=== PATIENT | male | born 1955 | race Caucasian/White ===

== ENCOUNTER → 2018-12-25 | Outpatient (CLI) | payer MEDICARE ==
--- NOTE | 2018-12-25 08:39 | CT ---
EXAMINATION TYPE: CT iac wo con DATE OF EXAM: 12/25/2018 COMPARISON: None HISTORY: Hearing Loss CT DLP: 150mGycm Automated exposure control for dose reduction was used. High-resolution CT of the temporal bones was performed in the axial and coronal planes. And soft tissue window settings are submitted. FINDINGS: The external auditory canals are patent bilaterally. Mastoid air cells show moderate opaci fication bilaterally without bone destruction. The middle ear ossicles are symmetric and unremarkable . There is no evidence of suspicious surrounding soft tissue density to suggest cholesteatoma. The scutum is preserved bilaterally. The cochlea and the semicircular canals are symmetric and unremarka ble. Vestibular aqueduct and internal carotid canal appear unremarkable. Temporomandibular joints a re maintained bilaterally. Large mucous retention cyst within the right maxillary sinus. A total thi ckening ethmoid air cells. IMPRESSION: 1. Moderate chronic mastoiditis. 2. Large right maxillary mucous retention cyst.
== END | disposition home or self-care (01) ==
LOC: RADCTMAIN 07:43
PROVIDERS: ATTEND Otolaryngology
DX: H70.10 Chronic mastoiditis, unspecified ear (principal); H91.90 Unspecified hearing loss, unspecified ear; H92.09 Otalgia, unspecified ear; H69.90 Unspecified Eustachian tube disorder, unspecified ear
CPT/HCPCS: 70480

== ENCOUNTER → 2020-08-29 | Outpatient (CLI) | payer OTHER ==
--- NOTE | 2020-08-29 10:50 | US ---
EXAMINATION TYPE: US abdomen complete DATE OF EXAM: 08/29/2020 COMPARISON: NONE CLINICAL HISTORY: Z87.891 Personal hx nicotine dependence. Smoker x 45 years; screening for AAA EXAM MEASUREMENTS: Liver Length: 13.7 cm Gallbladder Wall: 0.2 cm CBD: 0.4 cm Spleen: 10.3 cm Right Kidney: 12.7x 6.8 x 6.4 cm Left Kidney: 13.2 x 7.5 x 6.1 cm Pancreas: hyperechoic; tail obscured by overlying bowel gas Liver: wnl Gallbladder: wnl Evidence for sonographic Otto's sign: no CBD: wnl Spleen: wnl Right Kidney: No hydronephrosis or masses seen Left Kidney: multiple renal cysts are imaged with largest at inferior pole = 2.8 x 2.6 x 2.4cm Upper IVC: wnl Abd Aorta: size is wnl; intimal wall thickening is noted mid and distally and into common iliac adrienne ricarda. The visualized liver is homogenous. The intrahepatic portion of the IVC is seen. Some ectasia to abd ominal aorta without greater than 3.0 cm aneurysm There is no evidence of cholelithiasis. Common bi le duct is unremarkable. The visualized portions of the pancreas are homogenous. The spleen is unre markable. Kidneys are symmetric and free of hydronephrosis. Cortical thinning right kidney. Few scat tered small simple appearing thin-walled cysts throughout the left kidney. IMPRESSION: Ectasia to the abdominal aorta without greater than 3.0 cm AAA.
== END | disposition home or self-care (01) ==
LOC: RADUSWWP 09:42
DX: I77.811 Abdominal aortic ectasia (principal)
CPT/HCPCS: 76700

== ENCOUNTER → 2020-09-01 | Outpatient (CLI) | payer MEDICARE ==
--- NOTE | 2020-09-01 15:31 | CTL ---
EXAMINATION TYPE: CT Low Dose Lung DATE OF EXAM ORDERED: 09/01/2020 HISTORY: . Lung cancer screening CT DLP: [address] CTDI: 3.5 mGy Automated exposure control for dose reduction was used. SCREENING VISIT: COMPARISON: TECHNIQUE: Low dose computed tomography scan was performed through the chest at 1 mm thick sections a nd reconstructed images in the coronal plane at [address] DIAGNOSTIC QUALITY: Satisfactory FINDINGS: LUNGS: Emphysematous changes are seen. No pleural effusion or consolidation. No pneumothorax. No significant pleural thickening. No pleural calcifications. Heart mildly prominent with a trace of pericardial fluid. No sizable pulmonary nodule. Mild coronary artery calcification. Aorta of normal caliber. Hypertrophic and degenerative change of the spine. Limited imaging of the upper abdomen demonstrates no definite abnormality. 1.6 cm right adrenal nodul e. IMPRESSION: 1. COPD with no sizable pulmonary nodule. 2. Indeterminate right adrenal nodule measuring 1.[address] LUNG RAD AND CT CHEST RECOMMENDATION: Lung-Rad 1 Negative: Continue annual screening with LDCT in 12 months.
== END | disposition home or self-care (01) ==
LOC: RADCTMAIN 14:45
PROVIDERS: ATTEND Nurse Practitioner Acute Care
DX: Z12.2 Encounter for screening for malignant neoplasm of respiratory organs (principal); J44.9 Chronic obstructive pulmonary disease, unspecified; Z87.891 Personal history of nicotine dependence
CPT/HCPCS: 71271

== ENCOUNTER → 2021-10-10 | Outpatient (CLI) | payer OTHER ==
--- NOTE | 2021-10-10 10:18 | CTL ---
EXAMINATION TYPE: CT Low Dose Lung DATE OF EXAM ORDERED: 10/10/2021 HISTORY: Tobacco use. Lung cancer screening CT DLP: 98.[address] CTDI: 2.80 mGy Automated exposure control for dose reduction was used. SCREENING VISIT: Follow-up COMPARISON: CT dated 09/01/2020 TECHNIQUE: Low dose computed tomography scan was performed through the chest at 1 mm thick sections a nd reconstructed images in multiple planes at 1 mm and [address] DIAGNOSTIC QUALITY: Satisfactory FINDINGS: LUNG NODULES: Left lung solid [address] image 201. This nodule is unchanged. LUNGS: COPD: Severity: Mild Fibrosis: Severity: None Lymph nodes: No pathologic lymph nodes Other findings: None RIGHT PLEURAL SPACE: Effusion: None Calcification: None Thickening: None Pneumothorax: None LEFT PLEURAL SPACE: Effusion: None Calcification: None Thickening: None Pneumothorax: None HEART: Heart Size: Normal Coronary Calcification: Mild Pericardial Effusion: None OTHER FINDINGS: Upper abdomen: Stable 2.2 cm right adrenal adenoma. Left upper pole renal cyst, incompletely included in the scan. Bony thorax: No aggressive bone lesion. Supraclavicular region: None Other: Arterial atherosclerotic calcifications IMPRESSION: Stable left lung 3 mm nodule. No new suspicious or progressive lung lesion. Stable right adrenal adenoma. CT LUNG RAD AND CT CHEST RECOMMENDATION: Lung-Rad 2 Benign Appearance or Behavior: Continue annual sc reening with LDCT in 12 months. S Modifier (other clinically significant findings): As above.
== END | disposition home or self-care (01) ==
LOC: RADCTMAIN 07:27
DX: Z12.2 Encounter for screening for malignant neoplasm of respiratory organs (principal); R91.1 Solitary pulmonary nodule; D35.01 Benign neoplasm of right adrenal gland; Z87.891 Personal history of nicotine dependence
CPT/HCPCS: 71271

== ENCOUNTER → 2022-10-12 | Outpatient (CLI) | payer OTHER ==
--- NOTE | 2022-10-13 18:37 | CTL ---
EXAMINATION TYPE: CT Low Dose Lung DATE OF EXAM: 10/12/2022 7:31 AM CLINICAL INDICATION:Male, 66 years old with history of Z87.891 personal hx tobacco use; Personal hist ory of tobacco use , history of tobacco use. COMPARISON: Most recent 10/10/2021 CT chest TECHNIQUE: Multiple axial non-contrast scans were obtained from approximately the lung apices through the upper abdomen. Coronal and sagittal reformatted images were obtained. Low dose technique was uti lized. CT DLP: 145.20 mGycm, Automated exposure control for dose reduction was used. CT Contrast: Contrast used: None Oral contrast used: None FINDINGS: ======== Lack of intravenous contrast and low dose technique limits the evaluation of the vascular and soft ti ssue structures. LUNGS: No evidence of pulmonary fibrosis. No evidence of focal consolidation, pneumothorax or pleural effusion. Mild centrilobular and paraseptal emphysema changes are seen throughout the lungs. Nodules: No greater than 4 mm pulmonary nodules. Scattered atelectasis changes along the periphery of the lung s posteriorly. RUL: None. RML: None. RLL: None. RUTHY: None. LLL: None. AIRWAY: Patent and unremarkable. HEART: Size within normal limits.Mild calcifications of the coronary arteries. MEDIASTINUM: No gross evidence of adenopathy. VASCULATURE: No aortic aneurysm. MUSCULOSKELETAL: No acute osseous abnormalities SOFT TISSUES/LYMPH NODES: Unremarkable. LOWER NECK: No significant findings. UPPER ABDOMEN: Stable probable right adrenal adenoma measuring up to 2.1 cm. IMPRESSION: 1. No clinically significant pulmonary nodules. 2. Mild emphysema changes. CT LUNG RAD AND CT CHEST RECOMMENDATION: Lung-Rad 1 Negative: Continue annual screening with LDCT in 12 months. S Modifier (other clinically significant findings): None Recommend smoking cessation (if current smoker), or continuation of smoking cessation (if prior smoke r). Annual screening for lung cancer with low-dose computed tomography is recommended in adults ages 55 to 77 years who have a 30 pack-year smoking history and currently smoke or have quit within the pa st 15 years. Screening should be discontinued once a person has not smoked for 15 years or develops a health problem that substantially limits life expectancy or the ability or willingness to have curat lisa lung surgery. Lung rads 2021 [email or web address]
== END | disposition home or self-care (01) ==
LOC: RADCTMAIN 06:56
DX: J43.2 Centrilobular emphysema (principal); F17.210 Nicotine dependence, cigarettes, uncomplicated
CPT/HCPCS: 71271

== ENCOUNTER 2023-03-10 12:33 | Day surgery (SDC) | payer MEDICARE, OTHER ==
[2023-03-06 15:44] VITALS: BMI 25.7
[~2023-03-10 12:33] MED LIST: LACTATED RINGERS 1,000 ML IV SCH
[2023-03-10 13:18] VITALS: RESP 16; TEMP 99.6
[2023-03-10] MEDS ORDERED: PROPOFOL 10 MG/ML 20 ML VIAL IV ONE (13:28)
--- NOTE | 2023-03-10 13:30 | P.GSHP ---
History of Present Illness H&P Date: 03/10/23 Chief Complaint: Screening colonoscopy This a 7-year-old male presents today for screening colonoscopy. 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), born with large prostate, hx colon polyp, states "episode" showed on ct brain-no residual effects (pt unsure what this episode was) History of Any Multi-Drug Resistant Organisms: None Reported Additional Past Surgical History / Comment(s): fx wrist & later surgically repaired , nose repair surgery x2., jaw surgery, (hx broken jaw and teeth later removed), feet surgery, hands (joints), fingers Past Anesthesia/Blood Transfusion Reactions: No Reported Reaction, Motion Sickness Past Psychological History: No Psychological Hx Reported Smoking Status: Current every day smoker Past Alcohol Use History: None Reported Additional Past Alcohol Use History / Comment(s): smokes 12 cigarettes a day, started smoking as teen., hx smoking off and on. Past Drug Use History: None Reported - Past Family History Father Family Medical History: No Reported History Medications and Allergies Home Medications Medication Instructions Recorded Confirmed Type Aspirin [Adult Low Dose Aspirin EC] 81 mg PO DAILY 03/06/23 03/10/23 History Atorvastatin [Lipitor] 20 mg PO HS 03/06/23 03/10/23 History Multivitamins, Thera [Multivitamin 1 tab PO DAILY 03/06/23 03/10/23 History (formulary)] [place]-3/Dha/Epa/Fish Oil [Fish Oil 1 each PO DAILY 03/06/23 03/10/23 History 1,000 mg Softgel] Terazosin [Hytrin] 5 mg PO QAM 03/06/23 03/10/23 History Terazosin [Hytrin] 10 mg PO HS 03/06/23 03/10/23 History Vit C/E/Zn/Coppr/Lutein/Zeaxan 1 each PO DAILY 03/06/23 03/10/23 History [Preservision Areds 2 Softgel] Allergies Allergy/AdvReac Type Severity Reaction Status Date / Time No Known Allergies Allergy Verified 03/10/23 13:03 Surgical - Exam Vital Signs Temp Pulse Resp BP Pulse Ox 99.6 F 86 16 126/79 96 03/10/23 12:55 03/10/23 12:55 03/10/23 12:55 03/10/23 12:55 03/10/23 12:55 - General well developed, well nourished, no distress - Eyes PERRL - ENT normal pinna, normal nares - Neck no masses - Respiratory normal expansion - Cardiovascular Rhythm: regular - Abdomen Abdomen: soft, non tender Assessment and Plan Assessment: We will perform screening colonoscopy
--- NOTE | 2023-03-10 13:47 | P.OP ---
Date of Procedure: 03/10/23 Preoperative Diagnosis: Screening colonoscopy Postoperative Diagnosis: Rectal polyp Severe diverticulosis Procedure(s) Performed: Colonoscopy Anesthesia: MAC Surgeon: Deng Jenkins Pathology: other (Rectal polyps) Condition: stable Disposition: PACU Description of Procedure: Patient's placed on the endoscopy table in the lateral position. He received IV sedation. Digital rectus performed. There is extensive external hemorrhoids. Possible colitis scope was then placed patient anus and passed with colon. Scope was passed beyond the left colon secondary to severe diverticulosis. Scope withdrawn. There was significant diverticular changes of the left and descending colon. There were significant diverticular changes;. Scope was brought back the rectum there were several small polyp was removed with the snare and forcep. Scope was withdrawn for patient. Patient scheduled for a barium enema as an outpatient. He will follow-up in the office of his performed.
[2023-03-10 14:30] VITALS: BP 132/74; PULSE 75
== END 2023-03-10 14:34 | disposition home or self-care (01) ==
LOC: ORWHC2ENDO 12:33
PROVIDERS: ATTEND Surgery
DX: Z12.11 Encounter for screening for malignant neoplasm of colon (principal); K63.5 Polyp of colon; K62.1 Rectal polyp; M19.90 Unspecified osteoarthritis, unspecified site; F17.210 Nicotine dependence, cigarettes, uncomplicated; Z98.890 Other specified postprocedural states; Z79.82 Long term (current) use of aspirin; Z86.010 Personal history of colon polyps; Z79.899 Other long term (current) drug therapy
CPT/HCPCS: 45385; J2704; 88305

== ENCOUNTER → 2023-03-11 | Outpatient (CLI) | payer MEDICARE ==
--- NOTE | 2023-03-11 12:27 | FL ---
EXAMINATION TYPE: FL single contrast barium enema DATE OF EXAM: 03/11/2023 COMPARISON: NONE HISTORY: 67-year-old male incomplete colonoscopy, R15.0. TECHNIQUE: A single contrast barium enema study is performed. A total of 1 minute 38 seconds of flu oroscopic time was utilized during procedure and 70 images obtained. Total dose area product (DAP) i n uGy*m?, mGy*cm? (or similar): 35. FINDINGS: Ferris Wheel Attendant view of the abdomen shows overall non-obstructive bowel gas pattern. There is scatte red air throughout the colon extending distally to the rectum. Due to patient's condition and back problems, decision was made to proceed with a single contrast exa m. There is some redundancy of the ascending colon and sigmoid colon causing some limitation in assessme nt. Allowing for this limitation, no evidence of any mass or polyp, obstructing or constricting lesion th roughout the colon. There is colonic diverticulosis particularly at the cecum and sigmoid colon. Appendix was filled and appeared normal. No reflux into the terminal ileum. IMPRESSION: Single contrast utilized due to patient's condition and back problems. Redundancy of the ascending colon and sigmoid colon causes some limitation. No obvious annular constricting mass is id entified. There is diverticulosis at the cecum and ascending colon.
== END | disposition home or self-care (01) ==
LOC: RADFLMAIN 09:04
PROVIDERS: ATTEND Surgery
DX: Z12.11 Encounter for screening for malignant neoplasm of colon (principal); K57.30 Diverticulosis of large intestine without perforation or abscess without bleeding; R15.0 Incomplete defecation
CPT/HCPCS: 74270

== ENCOUNTER → 2023-10-14 | Outpatient (CLI) | payer OTHER ==
--- NOTE | 2023-10-14 15:49 | CTL ---
EXAMINATION TYPE: CT Low Dose Lung DATE OF EXAM ORDERED: 10/14/2023 HISTORY: Nicotine dependence. Lung cancer screening CT DLP: [address] CTDI: 2.4 mGy Automated exposure control for dose reduction was used. SCREENING VISIT: Follow-up COMPARISON: Multiple CT Low Dose Lung screening with most recent 10/12/2022 TECHNIQUE: Low dose computed tomography scan was performed through the chest at 1 mm thick sections a nd reconstructed images in multiple planes at 1 mm and [address] DIAGNOSTIC QUALITY: Satisfactory FINDINGS: Nodules: Stable lingular 4 mm pulmonary nodule (series 6, image 41). No new or enlarging pulmonary nodules. Fe w scattered punctate calcified granulomas. LUNGS: COPD: Severity: Mild paraseptal and centrilobular changes. Fibrosis: Severity: None Lymph nodes: Stable prominent subcarinal lymph node. Other findings: None RIGHT PLEURAL SPACE: Effusion: None Calcification: None Thickening: None Pneumothorax: None LEFT PLEURAL SPACE: Effusion: None Calcification: None Thickening: None Pneumothorax: None HEART: Heart Size: Normal Coronary Calcification: Small Pericardial Effusion: None OTHER FINDINGS: Upper abdomen: Stable lipid rich right adrenal adenoma measuring up to 2.3 cm. Bony thorax: None Supraclavicular region: None Other: None IMPRESSION: 1. Stable 4 mm lingular nodule. No new or enlarging pulmonary nodules. 2. Mild COPD changes. CT LUNG RAD AND CT CHEST RECOMMENDATION: Lung-Rad 2 Benign Appearance or Behavior: Continue annual sc reening with LDCT in 12 months. S Modifier (other clinically significant findings): None
== END | disposition home or self-care (01) ==
LOC: RADCTMAIN 12:33
PROVIDERS: ATTEND Family Medicine
DX: Z12.2 Encounter for screening for malignant neoplasm of respiratory organs (principal); J44.9 Chronic obstructive pulmonary disease, unspecified; R91.1 Solitary pulmonary nodule; Z87.891 Personal history of nicotine dependence
CPT/HCPCS: 71271

== ENCOUNTER → 2023-10-15 | Outpatient (CLI) | payer MEDICARE ==
[~2023-10-15] MED LIST changes: -LACTATED RINGERS 1,000 ML IV SCH; +REGADENOSON 0.4 MG/5 ML SYRINGE IV PRN
--- NOTE | 2023-10-15 10:52 | CA ---
Lexiscan Nuclear Stress Test Report Name: Valdo Munoz Exam Date: 10/15/2023 10:17 Exam Location: [facility] Ht (in): 72 Wt (lb): 195 BSA: 2.11 Ordering Phys: Julianna Franklin DO Referring Phys: Julianna Franklin DO Technologist: OSMIN Age: 67 Gender: M : 1955 Procedure CPT: Indications: R07.89 CHEST PAIN I10 HTN ICD-10 Codes: Patient History: Hyperlipidemia and hypertension Medications: Meds past 24 hrs: Pretest Chest Pain: STRESS TEST Lexiscan Protocol Exercise Duration (min:sec): 01:[address] Depressions (mm): Angina Score: Deleon Score: Resting HR (bpm): 56 Peak HR (bpm): 89 Resting BP (mmHg): 144 / 82 Peak BP (mmHg): 145 / 72 MPHR: 154 Target HR: 131 % MPHR: 58 METS: 1.0 Total Dose: Peak Dose: Atropine: Double Product: 22559 BP Response: Stress Termination: INFUSION COMPLETE Stress Symptoms: NO SYMPTOMS Stress Summary: ECG ANALYSIS Resting ECG: Stress ECG: CONCLUSIONS No EKG changes of ischemia during Lexiscan infusion Underlying right bundle branch block pattern on twelve-lead EKG Nuclear portion will be reported separately Dr. Amish Henao MD (Electronically Signed) Final Date: 15 October 2023 10:51
--- NOTE | 2023-10-15 11:59 | NM ---
EXAMINATION TYPE: NM stress lexiscan cardiolite DATE OF EXAM: 10/15/2023 COMPARISON: NONE CLINICAL INDICATION: Male, 67 years old with history of R07.89 CHEST PAIN I10 HTN; TECHNIQUE: After the intravenous administration of 9.7 mCi Tc 99m Sestamibi - Cardiolite resting SPE CT images acquired 75 minutes post injection. The patient received 0.4mg Lexiscan, 26 mCi Tc 99m Sestamibi - Stress images obtained 35 minutes post injection FINDINGS: Review of stress and rest SPECT images demonstrates no distinct perfusion abnormality. Gated analysi s shows normal wall motion with an estimated left ventricular ejection fraction of 71 %. IMPRESSION: No scintigraphic evidence for reversible ischemia.
== END | disposition home or self-care (01) ==
LOC: RADNMMAIN 08:01
PROVIDERS: ATTEND Family Medicine
DX: I45.10 Unspecified right bundle-branch block (principal); R07.89 Other chest pain; I10 Essential (primary) hypertension
CPT/HCPCS: 93017; 78452; A9500; J2785

== ENCOUNTER → 2024-10-18 | Outpatient (CLI) | payer OTHER ==
--- NOTE | 2024-10-18 14:37 | CTL ---
EXAMINATION TYPE: CT Low Dose Lung DATE OF EXAM: 10/18/2024 12:06 PM COMPARISON: 10/14/2023 CLINICAL INDICATION: Male, 68 years old with history of Z12.2 SCREENING LUNG CA Z87.891 FORMER SMOKER ; HISTORY OF SMOKER, history of tobacco use. TECHNIQUE: Multiple axial non-contrast scans were obtained from approximately the lung apices through the upper abdomen. Coronal and sagittal reformatted images were obtained. Low dose technique was uti lized. MIP were created on a separate workstation and submitted for review. CT DLP: 67 mGycm, Automated exposure control for dose reduction was used. CT Contrast: Contrast used: None Oral contrast used: None FINDINGS: Lack of intravenous contrast and low dose technique limits the evaluation of the vascular and soft ti ssue structures. LUNGS: No evidence of pulmonary fibrosis. No evidence of focal consolidation, pneumothorax or pleural effusion. Centrilobular emphysema changes. Nodules: RUL: None. RML: None. RLL: None. RUTHY: Stable lingular 4 mm nodule series 9 image 39 LLL: None. AIRWAY: Patent and unremarkable. HEART: Size within normal limits. Mild coronary artery calcifications present. MEDIASTINUM: No gross evidence of adenopathy. VASCULATURE: No aortic aneurysm. MUSCULOSKELETAL: No acute osseous abnormalities SOFT TISSUES/LYMPH NODES: Unremarkable. LOWER NECK: No significant findings. UPPER ABDOMEN: Left renal cyst measuring a few 40 mm partially visualized. Recommended. IMPRESSION: 1. No clinically significant pulmonary nodules. 2. Mild emphysema. CT LUNG RAD AND CT CHEST RECOMMENDATION: Lung-Rad 2 Benign Appearance or Behavior: Continue annual sc reening with LDCT in 12 months. S Modifier (other clinically significant findings): None Recommend smoking cessation (if current smoker), or continuation of smoking cessation (if prior smoke r). Annual screening for lung cancer with low-dose computed tomography is recommended in adults ages 55 to 77 years who have a 30 pack-year smoking history and currently smoke or have quit within the pa st 15 years. Screening should be discontinued once a person has not smoked for 15 years or develops a health problem that substantially limits life expectancy or the ability or willingness to have curat lisa lung surgery. Lung rads 2021 [email or web address] [facility], Workstation: [facility], 10/18/2024 2:35 PM
== END | disposition home or self-care (01) ==
LOC: RADCTMAIN 11:50
PROVIDERS: ATTEND Internal Medicine Pulmonary Disease
DX: Z12.2 Encounter for screening for malignant neoplasm of respiratory organs (principal); J43.2 Centrilobular emphysema; Z87.891 Personal history of nicotine dependence
CPT/HCPCS: 71271